=== PATIENT | male | born 1965 | race Caucasian/White ===

== ENCOUNTER 2022-05-27 16:14 | Inpatient (IN) | payer MEDICAID ==
[~2022-05-27] VITALS: Ht 170.2 cm; Wt 113.0 kg
[~2022-05-27 16:14] MED LIST: AMIT25TA9 PO; COLC0.6C3; GABA-533 PO; OXYC1TAB5 PO; TIZA-191 PO
[2022-05-28 06:40] LABS: CHLORIDE 108 mEq/L (98-107)
[2022-05-28 06:49] LABS: BASOPHILS % 0.4 % (0.0-2.0); EOSINOPHILS % 0.7 % (0.0-5.0); HEMATOCRIT. 44.8 % (42.0-52.0); HEMOGLOBIN. 15.3 g/dL (14.0-18.0); LYMPHOCYTES % 27.3 % (20.0-50.0); MEAN CORPUSCULAR HEMOGLOBIN 28.6 pg (28.0-32.0); MEAN CORPUSCULAR VOLUME 83.8 fL (80.0-94.0); MEAN PLATELET VOLUME 7.3 fl (7.4-10.4); MONOCYTES % 7.6 % (2.0-8.0); PLATELET 332 x1000/uL (130-400); RED BLOOD CELL COUNT 5.35 mill/uL (4.7-6.1); RED CELL DISTRIBUTION WIDTH 14.3 % (11.6-14.6)
[2022-05-28] MEDS ORDERED: ONDANSETRON HCL 4MG/2ML INJ IV PRN (10:30)
[2022-05-28] MEDS ORDERED: ACETAMINOPHEN 325MG TABLET PO PRN (10:30)
[2022-05-29 14:00] VITALS: BP 128/82
[2022-05-29] MEDS ORDERED: COLC0.6C3 PO (19:43)
[2022-05-29] MEDS ORDERED: AMIT25TA9 PO (19:44)
== END 2022-05-30 08:14 | DRG 137 ==
LOC: ER 16:14 → MICUSO 05-28 06:32
PROVIDERS: ADMIT Internal Medicine; ATTEND Internal Medicine
DX: U07.1 COVID-19 (principal); E44.1 Mild protein-calorie malnutrition; E66.9 Obesity, unspecified; T38.0X5A Adverse effect of glucocorticoids and synthetic analogues, initial encounter; R74.01 Elevation of levels of liver transaminase levels; Z85.038 Personal history of other malignant neoplasm of large intestine; Z59.00 Homelessness unspecified; Z68.39 Body mass index [BMI] 39.0-39.9, adult; Y92.89 Other specified places as the place of occurrence of the external cause
CPT/HCPCS: 36415; 71045; 80053; 84145; 85025; 99285; L1830

== ENCOUNTER 2023-02-23 22:10 | Inpatient (IN) | payer MEDICAID ==
[~2023-02-23] VITALS: Ht 175.3 cm; Wt 136.6 kg
[~2023-02-23 22:10] MED LIST changes: -COLC0.6C3; +COLC0.6C3 PO; -GABA-533 PO; +GABA-534 PO
[2023-02-23] MEDS ORDERED: SODIUM CHLORIDE 0.9% 1,000 ML IV ONE (23:00)
[2023-02-23 23:38] LABS: BASOPHILS % 0.8 % (0.0-2.0); EOSINOPHILS % 3.5 % (0.0-5.0); HEMOGLOBIN. 14.2 g/dL (14.0-18.0); LYMPHOCYTES % 27.5 % (20.0-50.0); MEAN CORPUSCULAR HEMOGLOBIN 27.7 pg (28.0-32.0); MEAN CORPUSCULAR HGB CONC 33.7 g/dL (31.0-37.0); MEAN PLATELET VOLUME 7.2 fl (7.4-10.4); MONOCYTES % 6.2 % (2.0-8.0); PLATELET 361 x1000/uL (130-400); RED BLOOD CELL COUNT 5.13 mill/uL (4.7-6.1); WHITE BLOOD COUNT 10.9 x1000/uL (4.5-11.0)
[2023-02-23 23:45] LABS: CHLORIDE 102 mEq/L (98-107); INDEX HEMOLYSI 1 (1-3); INDEX ICTERIC 1 (1-4); INDEX LIPEMIC 1 (1-3); POTASSIUM 3.9 mEq/L (3.5-5.1); SODIUM 139 mEq/L (136-145)
[2023-02-23 23:53] LABS: ALANINE AMINOTRANSFERASE 35 IU/L (13-61); ALBUMIN 3.4 g/dL (3.4-5.0); ASPARTATE AMINOTRANSFERASE 25 IU/L (15-37); BILIRUBIN TOTAL 0.4 mg/dL (0.1-1.0); CALCIUM 9.2 mg/dL (8.5-10.1); CARBON DIOXIDE 34 mEq/L (21-32); CREATININE 0.8 mg/dL (0.6-1.3); GLUCOSE 107 mg/dL (70-105); PROTEIN TOTAL 7.7 g/dL (6.0-8.3); UREA NITROGEN BLOOD 13 mg/dL (7-21)
[2023-02-24] MEDS ORDERED: IOHEXOL-300 100 ML BOTTLE ONE (01:39)
[2023-02-24 06:46] VITALS: BP 142/87; PULSE 79; RESP 20; TEMP 97.9
[2023-02-24 08:00] VITALS: BP 115/76; PULSE 73; RESP 20; TEMP 98
[2023-02-24] MEDS ORDERED: ONDANSETRON HCL 4MG/2ML INJ IV PRN (09:45)
[2023-02-24] MEDS ORDERED: ACETAMINOPHEN 325MG TABLET PO PRN (09:45)
[2023-02-24] MEDS ORDERED: LACTULOSE 20G/30ML UDC PO NR (10:00)
[2023-02-24] MEDS ORDERED: NA PHOS,M-B/NA PHOS,DI-BA ENEMA 118ML PR NR (10:00)
[2023-02-24] MEDS: PANTOPRAZOLE SODIUM 40 MG/VIAL IV SCH (10:17)
[2023-02-24] MEDS: KETOROLAC 15MG/ML VIAL IV PRN ×2 (10:18→17:54)
[2023-02-24 12:00] VITALS: BP 128/83; PULSE 81; RESP 20; TEMP 97.6
[2023-02-24] MEDS ORDERED: SORBITOL 70% SOLN 30ML PO NR (15:30)
[2023-02-24 16:00] VITALS: BP 139/90; PULSE 88; RESP 20; TEMP 97.6
[2023-02-24 16:27] LABS: CLARITY URINE CLEAR (CLEAR); COLOR URINE DARK YELLOW (YELLOW); GLUCOSE URINE NEGATIVE (NEGATIVE); KETONES URINE NEGATIVE (NEGATIVE); LEUKOCYTE ESTERASE URINE 1+ (NEGATIVE); NITRITE URINE NEGATIVE (NEGATIVE); OCCULT BLOOD URINE NEGATIVE (NEGATIVE); PROTEIN URINE NEGATIVE (NEGATIVE)
[2023-02-24 16:42] LABS: BACTERIA URINE NONE SEEN; RBC URINE NONE SEEN /hpf (0-2); SQUAMOUS EPITHELIAL CELL URINE RARE /lpf (RARE/1+)
[2023-02-24] MEDS: DOCUSATE SODIUM 250MG CAPSULE PO SCH (17:03)
[2023-02-24 20:00] VITALS: BP 124/90; PULSE 91; RESP 18; TEMP 97.7
[2023-02-25] VITALS: BP 152/94; PULSE 76; RESP 18; TEMP 97.7
[2023-02-25] MEDS: KETOROLAC 15MG/ML VIAL IV PRN ×2 (01:54→20:32)
[2023-02-25 04:00] VITALS: BP 115/78; PULSE 80; RESP 17; TEMP 97.9
[2023-02-25 08:00] VITALS: BP 146/91; PULSE 79; RESP 18; TEMP 97.6
[2023-02-25] MEDS: PANTOPRAZOLE SODIUM 40 MG/VIAL IV SCH (09:47)
[2023-02-25] MEDS: DOCUSATE SODIUM 250MG CAPSULE PO SCH ×2 (09:59→19:29)
[2023-02-25] MEDS: POLYETHYLENE GLYCOL 3350 (17GM) 1 DOSE PACK PO SCH (10:00)
[2023-02-25 12:00] VITALS: BP 133/89; PULSE 80; RESP 18; TEMP 97.7
[2023-02-25 13:33] LABS: ALBUMIN 3.1 g/dL (3.4-5.0); BILIRUBIN DIRECT 0.2 mg/dL (0.0-0.2); BILIRUBIN TOTAL 0.9 mg/dL (0.1-1.0); PROTEIN TOTAL 7.2 g/dL (6.0-8.3)
[2023-02-25 16:00] VITALS: BP 137/83; PULSE 83; RESP 18; TEMP 97.6
[2023-02-25 20:00] VITALS: BP 139/85; PULSE 82; RESP 18; TEMP 97.7
[2023-02-25] MEDS ORDERED: HYDR-4009 PO (20:34)
[2023-02-25] MEDS ORDERED: BUPR2TAB SL (20:34)
[2023-02-25] MEDS ORDERED: METH-773 PO (20:34)
[2023-02-25] MEDS ORDERED: FAMO20TA8 PO (20:34)
[2023-02-25] MEDS ORDERED: CLON0.1T PO (20:34)
[2023-02-25 21:18] LABS: CHLORIDE 105 mEq/L (98-107); POTASSIUM 4.4 mEq/L (3.5-5.1); SODIUM 135 mEq/L (136-145)
[2023-02-25 21:25] LABS: ALANINE AMINOTRANSFERASE 34 IU/L (13-61); ALBUMIN 3.1 g/dL (3.4-5.0); ASPARTATE AMINOTRANSFERASE 30 IU/L (15-37); BILIRUBIN DIRECT 0.1 mg/dL (0.0-0.2); BILIRUBIN TOTAL 0.9 mg/dL (0.1-1.0); CALCIUM 8.4 mg/dL (8.5-10.1); CARBON DIOXIDE 23 mEq/L (21-32); CREATININE 0.6 mg/dL (0.6-1.3); GLUCOSE 129 mg/dL (70-105); PROTEIN TOTAL 7.7 g/dL (6.0-8.3); UREA NITROGEN BLOOD 14 mg/dL (7-21)
[2023-02-26] VITALS (7 sets, daily range): BP systolic 121–138; BP diastolic 59–88; PULSE 77–94; RESP 17–20; TEMP 97.1–99.5; O2SAT 98
[2023-02-26] MEDS: DOCUSATE SODIUM 250MG CAPSULE PO SCH ×2 (10:32→17:32)
[2023-02-26] MEDS: PANTOPRAZOLE SODIUM 40 MG/VIAL IV SCH (10:32)
[2023-02-26] MEDS: POLYETHYLENE GLYCOL 3350 (17GM) 1 DOSE PACK PO SCH (10:32)
[2023-02-26] MEDS ORDERED: PNEUMOCOCCAL 23-VAL P-SAC VAC 0.5 ML IM ONE (10:45)
[2023-02-26] MEDS: KETOROLAC 15MG/ML VIAL IV PRN ×2 (10:53→18:35)
[2023-02-26] MEDS ORDERED: HYDROCODONE/ACETAMINOPHEN 5/325MG TABLET PO PRN (11:00)
[2023-02-26] MEDS ORDERED: NALOXONE HCL 0.4MG/ML VIAL IV PRN (11:15)
[2023-02-26 13:02] LABS: BASOPHILS % 0.7 % (0.0-2.0); EOSINOPHILS % 3.9 % (0.0-5.0); HEMATOCRIT. 42.4 % (42.0-52.0); HEMOGLOBIN. 14.5 g/dL (14.0-18.0); LYMPHOCYTES % 23.6 % (20.0-50.0); MEAN CORPUSCULAR HEMOGLOBIN 28.7 pg (28.0-32.0); MEAN CORPUSCULAR HGB CONC 34.3 g/dL (31.0-37.0); MEAN CORPUSCULAR VOLUME 83.6 fL (80.0-94.0); MEAN PLATELET VOLUME 7.4 fl (7.4-10.4); MONOCYTES % 6.1 % (2.0-8.0); NEUTROPHILS % 65.7 % (40.0-76.0); PLATELET 344 x1000/uL (130-400); RED BLOOD CELL COUNT 5.07 mill/uL (4.7-6.1); RED CELL DISTRIBUTION WIDTH 14.2 % (11.6-14.6); WHITE BLOOD COUNT 10.7 x1000/uL (4.5-11.0)
[2023-02-26 13:40] LABS: CHLORIDE 103 mEq/L (98-107); INDEX HEMOLYSI 1 (1-3); INDEX ICTERIC 1 (1-4); INDEX LIPEMIC 1 (1-3); POTASSIUM 3.4 mEq/L (3.5-5.1); SODIUM 139 mEq/L (136-145)
[2023-02-26 13:44] LABS: CALCIUM 8.6 mg/dL (8.5-10.1); CARBON DIOXIDE 29 mEq/L (21-32); CREATININE 0.7 mg/dL (0.6-1.3); GLUCOSE 123 mg/dL (70-105); UREA NITROGEN BLOOD 13 mg/dL (7-21)
[2023-02-27] VITALS: BP 124/71; PULSE 87; RESP 17; TEMP 97
[2023-02-27 04:00] VITALS: BP 121/81; PULSE 75; RESP 17; TEMP 96.8
[2023-02-27] MEDS: KETOROLAC 15MG/ML VIAL IV PRN (05:03)
[2023-02-27 08:00] VITALS: BP 133/87; PULSE 83; RESP 18; TEMP 97
[2023-02-27] MEDS: DOCUSATE SODIUM 250MG CAPSULE PO SCH ×2 (10:23→17:00)
[2023-02-27] MEDS: POLYETHYLENE GLYCOL 3350 (17GM) 1 DOSE PACK PO SCH (10:23)
[2023-02-27] MEDS: PANTOPRAZOLE SODIUM 40 MG/VIAL IV SCH (10:24)
[2023-02-27 12:00] VITALS: BP 110/61; PULSE 78; RESP 17; TEMP 96.6
[2023-02-27 16:00] VITALS: BP 143/82; PULSE 79; RESP 17; TEMP 96.8
== END 2023-02-27 20:00 | DRG 247 ==
LOC: ER 22:10 → MICUSO 02-24 04:40 → 8WST 02-24 05:16
PROVIDERS: ADMIT Internal Medicine; ATTEND Internal Medicine
DX: K56.41 Fecal impaction (principal); K81.9 Cholecystitis, unspecified; E66.9 Obesity, unspecified; I10 Essential (primary) hypertension; Z68.41 Body mass index [BMI] 40.0-44.9, adult; Z85.038 Personal history of other malignant neoplasm of large intestine; Z90.49 Acquired absence of other specified parts of digestive tract; Z79.899 Other long term (current) drug therapy
CPT/HCPCS: 36415; 71045; 74177; 76705; 80048; 80053; 80076; 81003; 83605; 85025; 90732; 93005; 99291; C9113; J1885; J7030; Q9967